=== PATIENT | female | born 1950 | race African-American/Black ===

== ENCOUNTER 2018-12-24 15:12 | Emergency (ER) | payer MEDICARE, OTHER ==
[~2018-12-24] VITALS: Ht 177.8 cm; Wt 90.7 kg
[~2018-12-24 15:12] MED LIST: ALDACTONE50 MG PO; ALLOPURINOL 30300 M1 PO; ASPIRIN81 M2 PO; ATENOLOL 50MG T50 M1 PO; DIOVAN160 MG PO; EFFEXOR75 MG; FISH OIL 1,0001 EAC5 PO; HYDROCHLOROTHIA25 M1 PO; HYDROXYZINE HCL25 M2 PO; K-DUR 20 MEQ T20 MEQ PO; LIPITOR20 MG PO; MEDROLDOSEPACK PO; METFORMIN HCL500 MG PO; NEXIUM20 M1 PO; PREMARIN1.25 MG PO; VENLAFAXIN75 MG/1 T2 PO; VITAMIN D1000 UNI1 PO; VITAMIN E1000 UNI3 PO
[2018-12-24] MEDS ORDERED: BETIMOL5 ML OPHTHALMIC (15:30)
[2018-12-24] MEDS ORDERED: LUMIGAN2.5 M1 OP (15:30)
[2018-12-24] MEDS ORDERED: METFORMIN HCL500 MG PO (15:30)
[2018-12-24] MEDS ORDERED: LIDODERM1 EACH TOP (17:19)
[2018-12-24 17:48] VITALS: BP 92/55
== END 2018-12-24 17:48 | disposition home or self-care (01) ==
LOC: M.ERS 15:12
DX: M54.5 Low back pain (principal); M79.641 Pain in right hand; I10 Essential (primary) hypertension; E11.9 Type 2 diabetes mellitus without complications; Z90.710 Acquired absence of both cervix and uterus; Z87.442 Personal history of urinary calculi